=== PATIENT | female | born 1950 | race Caucasian/White ===

== ENCOUNTER 2023-03-26 10:28 | Emergency (ER) | payer MEDICARE, SELFPAY ==
[2023-03-26] VITALS (7 sets, daily range): BP systolic 126–186; BP diastolic 59–97; BMI 35.0
--- NOTE | 2023-03-26 10:55 | ED.GENMED ---
History of Present Illness
General
Chief Complaint: Abdominal Symptoms
Source: patient
Exam Limitations: none
Time Seen by Provider: 03/26/23 10:39
Travel History
Have you had any contact with someone who has COVID-19?: No
Do you have any symptoms of coronavirus? Fever > 100 degrees, chills, cough, shortness of breath, sore throat, loss of taste or smell, muscle aches, or headache?: No
History of Present Illness
History of Present Illness:
72-year-old female with history of hypertension hyperlipidemia presented with complaints of generalized unwell sensation with nausea. There is no chest pain. She checked her blood pressure was elevated. She is. She may be having a hard to no leg
swelling or calf pain. No fevers. She does note nausea without vomiting. No fever or new cough. No other complaints at this time. This happened as she was getting to the gym and did not start working out yet
Past History
Past History
ED Past Medical History: HTN and Hypercholesterolemia
ED Past Surgical History: Cholecystectomy, Gynecological, Orthopedic and Other (Breast reduction)
Patient has exhibited threatening behavior?: No
PSI?: No
Social History
Tobacco: Non-smoker
Alcohol: None
Personal:
Living: with family
Family History
Family History: CAD
Phy Exam
Physical Exam
Physical Exam:
General: well appearing female, no acute distress
HEENT: NC/AT
Heart: RRR, no murmurs
Lungs; CTA bilaterally
Abd: soft, notender nondistedned
Ext: no cyanosis
Skin: Warm, no rashes
Course
Orders/Labs/Results
Orders:
Orders
03/26/23 10:53
Cardiac Monitoring- Treatment ONCE
Ondansetron Injectable [Zofran] 4 mg IV NOW STA
03/26/23 10:54
Electrocardiogram (*1) Urgent
Reason for Study: Chest Pain
EKG- Treatment ONCE
03/26/23 11:03
Complete Blood Count/With Diff Urgent
Comprehensive Metabolic Panel Urgent
Lipase Urgent
Troponin I Urgent
03/26/23 14:28
Troponin I Urgent
Abnormal Lab Results
03/26/23
11:03
WBC 4.6 L 10^3/uL
(4.8-10.8)
MCH 33.4 H pg
(27.0-31.0)
Monocytes % 9.8 H %
(1.7-9.3)
BUN 19 H mg/dl
(7-17)
Glucose 142 H mg/dl
(70-99)
03/26/23 11:03
03/26/23 11:03
Vital Signs
Initial and Last Documented VS:
Initial Vital Signs
Temp Pulse Resp BP Pulse Ox
98.0 F 94 16 186/95 98
03/26/23 10:34 03/26/23 10:34 03/26/23 10:34 03/26/23 10:34 03/26/23 10:34
Last Documented Vital Signs
Temp Pulse Resp BP Pulse Ox
98.0 F 71 13 145/64 100
03/26/23 10:34 03/26/23 15:15 03/26/23 15:15 03/26/23 15:14 03/26/23 15:15
MDM/Problems Addressed
Differential Diagnosis Includes:
Generalized unwell feeling with nausea. Concerned about cardiac disease. Will check EKG troponin to evaluate for coronary artery disease. Keep on monitor. Lipase pending. No PE risk factors.
*Critical Care Note
Total Time (30-74mins, 75-104mins- exclusive of procedures): Not Applicable
Update Note
Update Note:
Initial and repeat troponins both undetectable. Patient has remained stable. Every now and then she gets episodes in which she gets anxious. I do believe a lot of her symptoms may be related to her stress response. Nonetheless, recommended
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 No indication for admission. Stable for discharge
ED Attending Note
-
Portions of this chart may have been created with voice recognition software.� Occasional wrong word or��sound alike� substitutions may have occurred due to the inherent limitations of voice recognition software.
Discharge Plan
Departure
Patient Disposition: Home (Routine Discharge)
Date of Disposition: 03/26/23
Time of Disposition: 15:24
Patient with high blood pressure during this ER visit?: No
Discharge Problem:
Palpitations
Instructions: Chest Pain DCA Follow Up
Prescriptions:
No Action
atorvastatin 10 MG tablet
40 mg PO DAILY
escitalopram oxalate 10 MG tablet
10 mg PO DAILY
metoprolol succinate 25 MG tablet extended release 24 hr
25 mg PO DAILY
candesartan 16 MG tablet
16 mg PO DAILY Qty: 0 0RF
Rx Instructions:
hold systolic blood pressure <130 while taking pain meds
aspirin 81 mg Tablet,Delayed Release (Dr/Ec)
81 mg PO DAILY
Referrals:
Bonita Moore PA-C [Family Provider] -
Activity Restrictions/Additional Instructions:
Continue current medication regimen. 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 Return if worse otherwise
Interventions
Interventions:
*Risk Screen - Suicide Last Done: 03/26/23 10:53
*General Assessment Last Done: 03/26/23 10:53
*Neglect/Abuse Screening Last Done: 03/26/23 10:53
ED- Fall Risk Assessment Last Done: 03/26/23 10:53
*ED COVID-19 Vaccine History Last Done: 03/26/23 10:34
BY-Kiaern-Iptbwedjzm Assessment Last Done: 03/26/23 10:53
[2023-03-26] MEDS: ZOFRAN 4 MG IV (11:06)
[2023-03-26 11:17] LABS: % Basophils 1.1 % (0-2); % Eosinophils 5.2 % (0-6); % Immature Granulocytes 0.2 % (0-0.5); % Monocytes 9.8 % (1.7-9.3); % Neutrophils 56.7 % (42.2-75.2); Absolute Basophils 0.1 10^3/uL (0-0.2); Absolute Eosinophils 0.2 10^3/uL (0-0.7); Absolute Lymphocytes 1.2 10^3/uL (1.2-3.4); Absolute Monocytes 0.5 10^3/uL (0.1-0.6); Absolute Neutrophils 2.6 10^3/uL (1.4-6.5); Hematocrit 40.2 % (37.0-47.0); Hemoglobin 14.1 g/dL (12.0-16.0); Mean Corp Hgb Conc. 35.1 g/dL (33.0-37.0); Mean Corpuscular Hgb 33.4 pg (27.0-31.0); Mean Corpuscular Volume 95.3 fL (81.0-99.0); Mean Platelet Volume 10.4 fL (7.4-10.4); Nucleated Red Blood Cells % 0 %; Platelet Count 167 10^3/uL (130-400); Red Blood Cell Count 4.22 10^6/uL (4.20-5.40); Red Cell Dist. Width 12.4 % (11.5-14.5); White Blood Cell Count 4.6 10^3/uL (4.8-10.8)
[2023-03-26 11:28] LABS: ALT (SGPT) 28 U/L (0-35); AST (SGOT) 29 U/L (14-36); Albumin 4.3 g/dl (3.5-5.0); Alkaline Phosphatase 87 U/L (38-126); Blood Urea Nitrogen 19 mg/dl (7-17); Calcium 9.3 mg/dl (8.4-10.2); Carbon Dioxide 22 mmol/L (22-30); Chloride 105 mmol/L (98-107); Estimated Creatinine Clearance 76 ml/min; Glucose 142 mg/dl (70-99); Lipase 107 U/L (23-300); Potassium 3.7 mmol/L (3.5-5.1); Sodium 135 mmol/L (135-145); Total Bilirubin 0.7 mg/dl (0.2-1.3); Total Protein 6.9 g/dl (6.3-8.2); eGFR > 60.00
[2023-03-26 11:39] LABS: Troponin I < 0.012 ng/ml
[2023-03-26 15:06] LABS: Troponin I < 0.012 ng/ml
== END 2023-03-26 15:38 | disposition home or self-care (01) ==
LOC: EMR 10:28
PROVIDERS: Physician Assistant; EMERGENCY PHYSICIAN Emergency Medicine; FAMILY PHYSICIAN Physician Assistant Medical
DX: R00.2 Palpitations (principal); R11.0 Nausea
CPT/HCPCS: 99284; 96374; 80053; 83690; 84484; 85025; 93005

== ENCOUNTER → 2023-03-30 07:13 | Day surgery (SDC) | payer MEDICARE, SELFPAY | LOC: GI 07:13 | PROVIDERS: ATTENDING PHYSICIAN Internal Medicine Gastroenterology | DX: Z12.11 Encounter for screening for malignant neoplasm of colon (principal); D12.3 Benign neoplasm of transverse colon; K63.5 Polyp of colon; K57.30 Diverticulosis of large intestine without perforation or abscess without bleeding; K64.8 Other hemorrhoids; K31.89 Other diseases of stomach and duodenum; Z86.010 Personal history of colon polyps; Z13.810 Encounter for screening for upper gastrointestinal disorder; Z80.0 Family history of malignant neoplasm of digestive organs | CPT/HCPCS: 45380; 43239; 88305; 88342 ==

== ENCOUNTER → 2023-06-01 08:44 | Outpatient (REF) | payer MEDICARE, SELFPAY | LOC: WDC 08:44 | PROVIDERS: ATTENDING PHYSICIAN Obstetrics & Gynecology; FAMILY PHYSICIAN Physician Assistant Medical | DX: Z12.31 Encounter for screening mammogram for malignant neoplasm of breast (principal) | CPT/HCPCS: 77063; 77067 ==

== ENCOUNTER 2024-01-14 03:42 | Emergency (ER) | payer MEDICARE, SELFPAY ==
[2024-01-14] VITALS (7 sets, daily range): BP systolic 136–184; BP diastolic 61–91; BMI 35.9
[2024-01-14 04:56] LABS: % Basophils 0.5 % (0-2); % Eosinophils 1.9 % (0-6); % Immature Granulocytes 0.4 % (0-0.5); % Lymphocytes 15.2 % (20.5-51.1); % Monocytes 6.2 % (1.7-9.3); % Neutrophils 75.8 % (42.2-75.2); Absolute Eosinophils 0.2 10^3/uL (0-0.7); Absolute Lymphocytes 1.2 10^3/uL (1.2-3.4); Absolute Monocytes 0.5 10^3/uL (0.1-0.6); Hematocrit 38.4 % (37.0-47.0); Hemoglobin 13.2 g/dL (12.0-16.0); Mean Corp Hgb Conc. 34.4 g/dL (33.0-37.0); Mean Corpuscular Hgb 32.5 pg (27.0-31.0); Mean Corpuscular Volume 94.6 fL (81.0-99.0); Mean Platelet Volume 10.2 fL (7.4-10.4); Nucleated Red Blood Cells % 0 %; Platelet Count 162 10^3/uL (130-400); Red Blood Cell Count 4.06 10^6/uL (4.20-5.40); Red Cell Dist. Width 12.3 % (11.5-14.5)
[2024-01-14 05:13] LABS: ALT (SGPT) 32 U/L (0-35); AST (SGOT) 29 U/L (14-36); Alkaline Phosphatase 83 U/L (38-126); Blood Urea Nitrogen 26 mg/dl (7-17); Calcium 9.1 mg/dl (8.4-10.2); Carbon Dioxide 21 mmol/L (22-30); Chloride 106 mmol/L (98-107); Glucose 136 mg/dl (70-99); Potassium 4.1 mmol/L (3.5-5.1); Sodium 138 mmol/L (135-145); Total Bilirubin 0.3 mg/dl (0.2-1.3); Total Protein 6.4 g/dl (6.3-8.2); eGFR > 60.00
[2024-01-14] MEDS: NSS 500 IV (06:35)
[2024-01-14] MEDS: SOLU-CORTEF 200 MG IV (06:36)
[2024-01-14] MEDS: ANTIVERT 25 MG PO (06:36)
[2024-01-14] MEDS: BENADRYL 50 MG IV (06:36)
--- NOTE | 2024-01-14 07:39 | ED.GENMED ---
History of Present Illness
General
Chief Complaint: Dizziness
Source: patient and spouse
Exam Limitations: none
Time Seen by Provider: 01/14/24 06:11
History of Present Illness
History of Present Illness:
Patient presents with positional vertigo. Had an episode about a week ago that lasted a few minutes. Had a previous episode 10 to 12 years ago. No other neurologic symptoms headache visual issues double vision speech issues etc. This episode
which was worse early this morning with associated with heart racing and patient admitted she had gotten anxious at that time.
Past History
Past History
ED Past Medical History: HTN, Hypercholesterolemia and Other (Paraganglioma)
ED Past Surgical History: Cholecystectomy, Gynecological, Orthopedic and Other (Breast reduction)
Patient has exhibited threatening behavior?: No
PSI?: No
Social History
Tobacco: Non-smoker
Alcohol: None
Personal:
Living: with family
Family History
Family History: CAD
Phy Exam
Physical Exam
Physical Exam:
GENERAL: Alert and oriented in no apparent distress
EYE: Orbits normal.
NECK: Supple, no carotid bruit
ENT: Pharynx without erythema
CARDIAC: Regular rate and rhythm without any obvious murmurs.
LUNGS: Clear breath sounds,normal
ABDOMEN: Soft, without focal tenderness or distention
NEUROLOGICAL: Alert and oriented , extraocular muscles intact. No nystagmus. Cranial nerves II through XII intact. Speech normal. [id number] normal. [id number]-[id number] normal. Light touch intact.
SKIN: Warm and dry, no rash or lesion, no discoloration, skin intact.
MUSCULOSKELETAL: No edema,no deformity.Good color
PSYCH: Normal and appropriate interaction.
Course
Orders/Labs/Results
Orders:
Orders
01/14/24 03:49
ECG [Electrocardiogram (*1)] Urgent
Reason for Study: Vertigo / Dizzy
01/14/24 03:50
EKG- Treatment ONCE
01/14/24 04:44
CMP [Comprehensive Metabolic Panel] Urgent
Complete Blood Count/With Diff Urgent
01/14/24 06:23
CT Head & Neck Angio W/wo IV Urgent
Comment:
Reason For Exam: Vertigo/history of vascular loop/paraganglioma
0.9% Sodium Chloride 500 ml [Nss] 500 ml IV BOLUS
Meclizine [Antivert] 25 mg PO NOW STA
01/14/24 06:30
Diphenhydramine [Benadryl] 50 mg IV NOW STA
Hydrocortisone Sod Succinate [Solu-Cortef] 200 mg IV NOW STA
01/14/24 06:34
Hydrocortisone Sod Succinate [Solu-Cortef] 200 mg .ROUTE .STK-MED ONE
Abnormal Lab Results
01/14/24
04:44
RBC 4.06 L 10^6/uL
(4.20-5.40)
MCH 32.5 H pg
(27.0-31.0)
Neutrophils % 75.8 H %
(42.2-75.2)
Lymphocytes % 15.2 L %
(20.5-51.1)
Carbon Dioxide 21 L mmol/L
(22-30)
BUN 26 H mg/dl
(7-17)
Glucose 136 H mg/dl
(70-99)
01/14/24 04:44
01/14/24 04:44
Vital Signs
Initial and Last Documented VS:
Initial Vital Signs
Temp Pulse Resp BP Pulse Ox
98.9 F 88 20 184/91 100
01/14/24 03:47 01/14/24 03:47 01/14/24 03:47 01/14/24 03:47 01/14/24 03:47
Last Documented Vital Signs
Temp Pulse Resp BP Pulse Ox
98.9 F 72 16 157/72 95
01/14/24 03:47 01/14/24 09:00 01/14/24 09:00 01/14/24 09:00 01/14/24 07:26
MDM/Problems Addressed
Differential Diagnosis Includes:
Patient nontoxic. Most likely a positional vertigo/labyrinth Leslie. However with patient's history of a paraganglioma and location, CT angiography was ordered. Patient does have a history of hives from CT but tolerated with a prep well.
*Radiology
Radiology exam reviewed: radiology read reviewed (No acute findings)
*Pulse Oximetry
Patient hypoxic: no
*EKG
Interpreted by ED Provider?: Yes
Interpretation: normal
Comparison EKG: no changes
Heart Rate: 70
Rate: normal
Alvin: normal axis
Interval: normal interval
QRS Pattern: normal QRS
Ischemia: no ischemia
*Cobbler Mckay Interpretation
Rate: normal
Interpretation: normal
Heart Rate: 72
Rhythm: sinus
*Critical Care Note
Total Time (30-74mins, 75-104mins- exclusive of procedures): Not Applicable
Data Reviewed
Review of Other/Old Records Reveals: Labs, Records, Radiology Studies and Testing
Update Note
Update Note:
Patient's symptoms are very positional. She has a benign neurologic exam. She ambulated well. CT angiography is unremarkable. She has had previous similar episodes. I feel comfortable with outpatient management. As does the patient and her
. She will be discharged to follow-up
ED Attending Note
-
Portions of this chart may have been created with voice recognition software.� Occasional wrong word or��sound alike� substitutions may have occurred due to the inherent limitations of voice recognition software.
Discharge Plan
Departure
Patient Disposition: Home (Routine Discharge)
Date of Disposition: 01/14/24
Time of Disposition: 10:26
Patient with high blood pressure during this ER visit?: Yes
Discharge Problem:
Vertigo, Transient palpitations
Instructions: Vertigo (a Type of Dizziness) (DC), BLOOD PRESSURE
Prescriptions:
New
meclizine 25 mg tablet
25 mg PO TID PRN (Reason: dizziness) Qty: 14 0RF
No Action
atorvastatin 10 MG tablet
40 mg PO DAILY
escitalopram oxalate 10 MG tablet
10 mg PO DAILY
metoprolol succinate 25 MG tablet extended release 24 hr
25 mg PO DAILY
candesartan 16 MG tablet
16 mg PO DAILY Qty: 0 0RF
Rx Instructions:
hold systolic blood pressure <130 while taking pain meds
aspirin 81 mg Tablet,Delayed Release (Dr/Ec)
81 mg PO DAILY
Referrals:
Bonita Moore PA-C [Family Provider] - Follow up in 2-3 days
Activity Restrictions/Additional Instructions:
Follow-up closely with your primary physician
Return with worsening vertigo gait issues or with any other acute neurologic symptoms
The prescription was sent to your pharmacy
Interventions
Interventions:
*Risk Screen - Suicide Last Done: 01/14/24 03:47
*General Assessment Last Done: 01/14/24 04:52
*Neglect/Abuse Screening Last Done: 01/14/24 03:47
ED- Fall Risk Assessment Last Done: 01/14/24 04:53
*ED COVID-19 Vaccine History Last Done: 01/14/24 04:52
ED- Neurological Assessment Last Done: 01/14/24 04:53
ED- Cardiac Assessment Last Done: 01/14/24 04:53
ED Swallowing Screen Last Done: 01/14/24 08:15
Discharge Date and Time
Print Language: [place]
--- NOTE | 2024-01-14 10:55 | EDRN ---
Reviewed discharge instructions with patient. Verbalized understanding. Ambulated with steady gait to the lobby.
== END 2024-01-14 10:50 | disposition home or self-care (01) ==
LOC: EMR 03:42
PROVIDERS: Student in an Organized Health Care Education/Training Program; EMERGENCY PHYSICIAN Emergency Medicine; FAMILY PHYSICIAN Physician Assistant Medical
DX: R42 Dizziness and giddiness (principal); R00.2 Palpitations; I10 Essential (primary) hypertension
CPT/HCPCS: 99285; 96374; 96375; 96361 ×2; 70496; 70498; 80053; 85025; 93005; Q9967

== ENCOUNTER → 2024-06-06 08:34 | Outpatient (REF) | payer MEDICARE, SELFPAY | LOC: WDC 08:34 | PROVIDERS: ATTENDING PHYSICIAN Obstetrics & Gynecology; FAMILY PHYSICIAN Physician Assistant Medical | DX: Z12.31 Encounter for screening mammogram for malignant neoplasm of breast (principal) | CPT/HCPCS: 77063; 77067 ==

== ENCOUNTER → 2024-10-21 09:23 | Outpatient (REF) | payer MEDICARE, SELFPAY | LOC: HWRAD 09:23 | PROVIDERS: ATTENDING PHYSICIAN Internal Medicine; FAMILY PHYSICIAN Physician Assistant Medical | DX: E04.1 Nontoxic single thyroid nodule (principal) | CPT/HCPCS: 76536 ==